=== PATIENT | male | born 2005 | race Caucasian/White ===

== ENCOUNTER → 2024-08-05 | Outpatient (CLI) | payer MEDICARE ==
--- NOTE | 2024-08-06 22:18 | CT ---
EXAMINATION TYPE: CT hand LT wo con DATE OF EXAM: 08/05/2024 11:34 AM COMPARISON: None. CLINICAL INDICATION: Male, 18 years old with history of M25.532 PAIN IN LEFT WRIST, fx TECHNIQUE: Contrast used: mL of , (none if empty) Oral contrast used: (none if empty) Axial images were obtained at 3 mm thick sections. Reconstructed images the coronal and sagittal plan e were obtained. Three-D reconstructed images performed a separate computerized technologist are revi ewed. FINDINGS: Images are obtained through a fiberglass cast. There is a fracture of the dorsal distal capitate. There is a transverse fracture the mid scaphoid. No union is evident. Some diastases of the fracture fragments is evident, example image series 8 image 15. There is a fracture of the proximal triquetrum IMPRESSION: 1. FRACTURES OF MULTIPLE CARPAL BONES WITH ABOUT ANY INTERVAL HEALING. 2. THE SCAPHOID FRACTURE HAS DIASTASES [facility], , 08/06/2024 10:15 PM
== END | disposition home or self-care (01) ==
LOC: RADCTMAIN 11:05
PROVIDERS: ATTEND Orthopaedic Surgery Hand Surgery
DX: S62.002A Unspecified fracture of navicular [scaphoid] bone of left wrist, initial encounter for closed fracture (principal); M25.532 Pain in left wrist; X58.XXXA Exposure to other specified factors, initial encounter